=== PATIENT | female | born 1980 | race Caucasian/White ===

== ENCOUNTER 2022-07-15 04:18 | Emergency (ER) | payer MEDICAID ==
[~2022-07-15] VITALS: Ht 162.6 cm; Wt 113.4 kg
[2022-07-15 04:23] VITALS: BP_SYST 147
--- NOTE | 2022-07-15 04:30 | NUR ---
PT HERE C/O RLQ ABD PAIN WITH N/V X3 DAYS, DENIES DIARRHEA AND DENIES DYURIA. DENIES FEVER.PER PT SHE WENT TO HER PCP AND URGENT CARE WITH [facility]. PMH:DENIES PT AAOX4, NO SOB NOTED AND NAD. WALKED WITH STEADY TO RM 2, REPORT GIVEN TO TOYA HUFF
--- NOTE | 2022-07-15 04:35 | NUR ---
PT FROM HOME WITH C/O LRQ PAIN THAT STARTED 3 DAYS AGO AND WORSENED TONIGHT. PT DESCRIBES PAIN SHARP AND STABBING PAIN, RATED 10/10. REPORT N/V AND DENIES DIARRHEA. A&O 4, AMBULATORY AND FOLLOWING COMMANDS.
--- NOTE | 2022-07-15 04:40 | NUR ---
Dr. Leal at bedside with patient for evaluation.
[2022-07-15] MEDS ORDERED: NACL 0.9% 1,000 ML IV SCH (04:45)
[2022-07-15] MEDS ORDERED: HYDROmorphone 1 MG/ML INJ. CARTRIDGE IVP ONE (04:45)
[2022-07-15] MEDS ORDERED: HYDROmorphone 2 MG/ML VIAL IM ONE (05:15)
[2022-07-15] MEDS ORDERED: HYDROmorphone 1 MG/ML INJ. CARTRIDGE IM ONE ×2 (05:15)
--- NOTE | 2022-07-15 05:20 | NUR ---
PT TO RADIOLOGY VIA WHEELCHAIR ACCOMPANIED BY STAFF.
--- NOTE | 2022-07-15 05:32 | NUR ---
PT RETURNED FROM RADIOLOGY VIA WHEELCHAIR ACCOMPANIED BY STAFF.
[2022-07-15 06:06] LABS: BILIRUBIN,URINE NEGATIVE (NEGATIVE); BLOOD, URINE NEGATIVE (NEGATIVE); CLARITY/URINE CLEAR (CLEAR); COLOR,URINE YELLOW (YELLOW); GLUCOSE,URINE NEGATIVE (NEGATIVE); KETONES,URINE NEGATIVE (NEGATIVE); LEUKOCYTE ESTERASE ,URINE NEGATIVE (NEGATIVE); NITRITE, URINE NEGATIVE (NEGATIVE); PROTEIN URINE NEGATIVE (NEGATIVE); UROBILINOGEN,URINE 0.2 (0.2-1.0)
--- NOTE | 2022-07-15 06:40 | NUR ---
PT REPORTS ITCHING. MADE AWARE.
[2022-07-15 06:42] LABS: BASOPHILS # (AUTO) 0.1 K/uL (0.0-0.2); BASOPHILS % (AUTO) 0.9 % (0.0-2.0); EOSINOPHILS # (AUTO) 0.2 K/uL (0.0-0.4); EOSINOPHILS % (AUTO) 2.1 % (0.0-4.0); HEMATOCRIT 37.3 % (36-48); HEMOGLOBIN 12.5 g/dL (12.0-16.0); LYMPHOCYTES # (AUTO) 2.4 K/uL (1.0-5.5); MEAN CORPUSCULAR HEMOGLOBIN 28 pg (27-31); MEAN CORPUSCULAR HGB CONC 34 % (32-36); MEAN CORPUSCULAR VOLUME 84 fL (79.0-98.0); MONOCYTES # (AUTO) 0.5 K/uL (0.0-1.0); NEUTROPHILS # (AUTO) 7.1 K/uL (1.8-7.7); PLATELET COUNT (AUTO) 410 K/uL (130-430); RED BLOOD CELL COUNT(AUTO) 4.46 MIL/uL (4.2-6.2); RED CELL DISTRIBUTION WIDTH 15.4 % (9.0-15.0); WHITE BLOOD COUNT (AUTO) 10.4 K/uL (4.8-10.8)
[2022-07-15] MEDS ORDERED: DIPHENHYDRAMINE HCL 12.5 MG/5 ML UDC PO ONE (06:45)
[2022-07-15] MEDS ORDERED: ONDANSETRON 4 MG ODT TAB PO ONE (06:45)
[2022-07-15 06:50] LABS: CALCIUM 8.9 mg/dL (8.4-11.0); CREATININE 0.77 mg/dL (0.55-1.30); POTASSIUM 3.9 mmol/L (3.5-5.1)
[2022-07-15 06:56] LABS: ALBUMIN 3.8 g/dL (3.4-4.8); TOTAL BILIRUBIN 0.1 mg/dL (0.0-1.0)
--- NOTE | 2022-07-15 07:02 | NUR ---
Report given to Alycia HUFF to assume care. All questions and concerns addressed.
--- NOTE | 2022-07-15 07:08 | NUR ---
REPORT RECEIVED, CARE ASSUMED, PT ASSESSED. PT SITTING IN BED, STATES PAIN DECREASED. RESP EASY, MM PINK. DENIES C/O OR NEEDS AT PRESENT
[2022-07-15] MEDS ORDERED: ONDA-8 TL (07:44)
[2022-07-15] MEDS ORDERED: POLY17PO4 PO (07:44)
[2022-07-15 07:57] VITALS: BP_SYST 133
--- NOTE | 2022-07-15 07:59 | NUR ---
Patient given written and verbal discharge instructions and verbalizes understanding. ER MD discussed with patient the results and treatment provided. Patient in stable condition. ID arm band removed. Rx of MIRALAX AND ZOFRAN given. Patient educated on pain management and to follow up with PMD. Pain Scale 0. Opportunity for questions provided and answered. Medication side effect fact sheet provided.
== END 2022-07-15 07:59 | disposition home or self-care (01) ==
LOC: SED 04:18
DX: R10.31 Right lower quadrant pain (principal); R11.0 Nausea; Z91.041 Radiographic dye allergy status; Z88.6 Allergy status to analgesic agent; Z79.899 Other long term (current) drug therapy
CPT/HCPCS: 99284; 74176; 80053; 83690; 85025; 36415; 76376; 96372; 81003; Q0162; J1170; J7030